=== PATIENT | male | born 1990 | race Caucasian/White ===

== ENCOUNTER → 2017-09-14 | Outpatient (CLI) | payer OTHER ==
--- NOTE | 2017-09-14 12:05 | DIAGNOSTIC IMAGING REPORT ---
L KNEE 3 VIEWS CLINICAL HISTORY: KNEE PAIN pain COMPARISON: None. DISCUSSION: Moderate degenerative change all major joint compartments There is no evidence for soft tissue swelling. IMPRESSION: Moderate degenerative change. No acute process. The above report was generated using voice recognition software. It may contain grammatical, syntax or spelling errors. Electronically signed by: Arnav Romero M.D. 09/14/2017 12:04 PM Dictated Date/Time: 09/14/2017 12:00 PM
== END | disposition home or self-care (01) ==
LOC: C.OCCH 11:38
PROVIDERS: ATTEND Nurse Practitioner Adult Health
DX: M25.562 Pain in left knee (principal); M17.12 Unilateral primary osteoarthritis, left knee